=== PATIENT | male | born 1960 | race Caucasian/White ===

== ENCOUNTER → 2018-10-08 | Outpatient (CLI) | payer MEDICARE, MEDICAID ==
[~2018-10-08] MED LIST: REGADENOSON 0.4 MG/5 ML DISP.SYRIN. IV ONE
--- NOTE | 2018-10-09 16:19 | PCVCIMAG ---
APPROVED REPORT Study performed: 10/08/2018 12:34:32 EXAM: Comprehensive 2D, Doppler, and color-flow Echocardiogram Patient Location: Echo lab Status: routine BSA: 2.15 HR: 82 bpmBP: 130/88 mmHg Rhythm: NSR Other Information Study Quality: Adequate Risk Factors: Cardiac Risk Factors: HTN Indications Abnormal ECG tobacco use 2D Dimensions IVSd: 10.64 (7-11mm) LVDd: 40.13 mm PWd: 9.52 (7-11mm)Ascending Ao: 33.54 (22-36mm) LVDs: 29.65 (25-40mm) Left Atrium: 42.55 (27-40mm) Aortic Root: 33.49 mm LV Single Plane 4CH: 51.43 % LV Single Plane 2CH: 58.20 % Biplane EF: 55.1 % Volumes Left Atrial Volume (Systole) Single Plane 4CH: 46.20 mLSingle Plane 2CH: 77.51 mL LA ESV Index: 30.00 mL/m2 Aortic Valve AoV Peak Yoav.: 1.23 m/s AO Peak Gr.: 6.05 mmHgLVOT Max P.51 mmHg LVOT Max V: 0.79 m/s Mitral Valve E/A Ratio: 0.5 MV Decel. Time: 306.56 ms MV E Max Yoav.: 0.32 m/s MV A Yoav.: 0.61 m/s IVRT: 131.49 ms Pulmonary Valve PV Peak Yoav.: 1.19 m/sPV Peak Gr.: 5.62 mmHg Pulmonary Vein P Vein S: 0.25 m/sP Vein A: 0.44 m/s P Vein D: 0.32 m/sP Vein A Dur.: 117.6 msec P Vein S/D Ratio: 0.78 Tricuspid Valve TR Peak Yoav.: 2.76 m/s TR Peak Gr.: 30.47 mmHg TV Vmax: 0.47 m/s Left Ventricle The left ventricle is normal size. There is normal LV segmental wall motion. There is normal left ventricular wall thickness. Left ventricular systolic function is within lower limits of normal. LVEF is 50-55%. Grade I - abnormal relaxation pattern. Right Ventricle Right ventricle is mildly dilated. The right ventricular systolic function is normal. Atria The left atrium size is normal. Right atrium is mildly dilated. Aortic Valve The aortic valve is normal in structure. Mild aortic regurgitation. There is no aortic valvular stenosis. Mitral Valve The mitral valve is normal in structure. Trace mitral regurgitation. No evidence of mitral valve stenosis. Tricuspid Valve The tricuspid valve is normal in structure. Mild tricuspid regurgitation with PAP of 37 mmHg. Pulmonic Valve The pulmonary valve is normal in structure. Mild pulmonic regurgitation. Great Vessels The aortic root is normal in size. IVC is normal in size and collapses >50% with inspiration. Pericardium There is no pericardial effusion. There is no pleural effusion. <Conclusion> The left ventricle is normal size. LVEF is 50-55%. Right ventricle is mildly dilated. The aortic valve is normal in structure. Mild aortic regurgitation. The mitral valve is normal in structure. Trace mitral regurgitation. The tricuspid valve is normal in structure. Mild tricuspid regurgitation with PAP of 37 mmHg. The pulmonary valve is normal in structure. Mild pulmonic regurgitation. There is no pericardial effusion. There is no pleural effusion.
--- NOTE | 2018-10-10 11:51 | PCVCIMAG ---
APPROVED REPORT Imaging Protocol: Rest Tc-99m/Stress Tc-99m 1 day Study performed: 10/08/2018 13:49:32 Indication: Abnormal EKG Patient Location: Out-Patient Stress Nurse: Janneth Hahn RN, Mirian Hill RN RI Tech:Rocio Hawk [facility] Ht: 6 ft 11 in Wt: 210 lbs BSA: 2.41 m2 HR: 75 bpm BP: 118/86 mmHg BMI: 21.42 Rhythm: Sinus Rhythm Medical History Medical History: Hyperlipidemia, HTN, Current Smoker Medications: Crestor Allergies: No known drug allergies Cardiac Risk Factors: Age Pretest Chest Pain Characteristics: No chest pain Exercise History: Indeterminate Resting Data Rest SPECT myocardial perfusion imaging was performed in supine position 45 minutes following the intravenous injection of 11 mCi of Tc-99m Sestamibi. Time of rest injection: 1315 Date: 10/08/2018 Administration Route: IV Administration Site: Right AC Pharmacologic Stress Pharmacologic stress test was performed by injecting Regadenoson 0.4 mg IV push over 10-15 seconds immediately followed by the intravenous injection of 34.2 mCi of Tc-99m Sestamibi. Time of stress injection: 1415 Date: 10/08/2018 Administration Route: IV Administration Site: Right AC Gated Stress SPECT was performed 45 minutes after stress injection. The images were gated to evaluate regional wall motion and calculate left ventricular ejection fraction. Stress Test Details Stress Test: Pharmacologic stress testing performed using 0.4 mg of regadenoson per 5 mL given IV over 10 seconds. Reason for pharmacologic stress test: physical limitation, s/p recent hip surgery. HRMax Heart Rate (APMHR): 162 bpm Resting HR: 75 bpmTarget HR (85% APMHR): 137 bpm Max HR Achieved: 100 bpm % of APMHR: 61 Recovery HR: 93 bpm BP Resting BP: 118/86 mmHg Max BP: 115/71 mmHg Recovery BP: 116/74 mmHg ECG Resting ECG: Sinus Rhythm Stress ECG: Sinus Rhythm Arrhythmia: PVC's Recovery ECG: Sinus Rhythm Clinical Reason for Termination: Completed protocol Stress Symptoms: Dyspnea Symptoms resolved with caffeine. Stress ECG Conclusion 1. Adequate response to intravenous Lexiscan 2. Inadequate heart rate for ECG diagnosis Study Data Post stress, the left ventricular ejection was 66%.. SSS: 0 SRS: 6 SDS: 0 TID = 1.44. Perfusion There is a medium area of mildly reduced uptake in the entire segment of the inferior wall which is seen on the stress images as well as the resting images. This area thickens and moves normally and is most consistent with attenuation artifact. Wall Motion Normal left ventricular wall motion. Nuclear Conclusion ECG Findings: non-diagnostic Clinical Findings: negative for ischemia Nuclear Findings: negative for ischemia Exercise Capacity: not assessed 1. Low risk study 2. Post stress left ventricular ejection fraction 66% without wall motion abnormalities <Conclusion> 1. Adequate response to intravenous Lexiscan 2. Inadequate heart rate for ECG diagnosis
== END | disposition home or self-care (01) ==
LOC: PCVCIMAG 12:21
PROVIDERS: ATTEND Internal Medicine
DX: I08.8 Other rheumatic multiple valve diseases (principal); R94.31 Abnormal electrocardiogram [ECG] [EKG]; I10 Essential (primary) hypertension; Z72.0 Tobacco use
CPT/HCPCS: 78452; 93017; 93306; A9500; J2785